=== PATIENT | male | born 2005 | race Two or more races ===

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

== ENCOUNTER → 2025-01-05 | Emergency (ER) | payer OTHER ==
[~2025-01-05] VITALS: Ht 188 cm; Wt 90.7 kg
[~2025-01-05] MED LIST: NAPR-1164 PO
[2025-01-05 02:18] VITALS: BP 120/75; TEMP 98.3; O2SAT 98
== END | disposition home or self-care (01) ==
LOC: ER 00:12
DX: S93.402A Sprain of unspecified ligament of left ankle, initial encounter (principal); X50.9XXA Other and unspecified overexertion or strenuous movements or postures, initial encounter; Y93.67 Activity, basketball; Y92.89 Other specified places as the place of occurrence of the external cause; Y99.8 Other external cause status
CPT/HCPCS: 73610-TC